=== PATIENT | female | born 1990 | race African-American/Black ===

== ENCOUNTER 2018-12-02 21:09 | Emergency (ER) | payer OTHER ==
[~2018-12-02] VITALS: Ht 170.2 cm; Wt 55.3 kg
[2018-12-02 21:20] VITALS: Ht 170.2 cm; Wt 55.3 kg
[2018-12-02 23:22] VITALS: BP 95/76
== END 2018-12-02 23:22 | disposition home or self-care (01) ==
LOC: ED 21:09
DX: S39.012A Strain of muscle, fascia and tendon of lower back, initial encounter (principal); X58.XXXA Exposure to other specified factors, initial encounter; Y93.89 Activity, other specified; Y92.89 Other specified places as the place of occurrence of the external cause; Y99.8 Other external cause status

== ENCOUNTER 2019-05-08 22:22 | Emergency (ER) | payer OTHER ==
[~2019-05-08] VITALS: Ht 170.2 cm; Wt 58.1 kg
[2019-05-08 22:38] VITALS: Ht 170.2 cm; Wt 58.1 kg
[2019-05-09 01:23] LABS: BASOPHIL % 0.6 % (0-2); PLATELET COUNT 244 x10^3mcL (130-400)
[2019-05-09 01:31] LABS: CALCIUM 9.2 mg/dL (8.5-10.1); CHLORIDE SERUM 108 mmol/L (98-107); CREATININE SERUM 0.7 mg/dL (0.6-1.0); GFR1 > 60 mL/min; GLUCOSE SERUM 75 mg/dL (74-106); POTASSIUM SERUM 3.9 mmol/L (3.5-5.1); SODIUM SERUM 143 mmol/L (136-145)
[2019-05-09 01:36] LABS: ALBUMIN 3.8 g/dL (3.4-5.0); ALKALINE PHOSPHATASE 57 U/L (46-116); ALT/SGPT 16 U/L (14-59); AST/SGOT 4 U/L (15-37); BILIRUBIN TOTAL 0.36 mg/dL (0.20-1.00); TOTAL PROTEIN, SERUM 7.4 g/dL (6.4-8.2)
[2019-05-09 04:01] VITALS: BP 132/72
== END 2019-05-09 04:01 | disposition home or self-care (01) ==
LOC: ED 22:22
DX: N76.0 Acute vaginitis (principal)
CPT/HCPCS: 36415; 87491; 87591; J0696; Q0092